=== PATIENT | male | born 1950 | race Caucasian/White ===

== ENCOUNTER 2016-08-23 15:00 | Emergency (ER) | payer MEDICARE ==
[~2016-08-23] VITALS: Ht 185.4 cm; Wt 90.0 kg
[~2016-08-23 15:00] MED LIST: ALBU6.7H INH; ASPI325T PO; LITH600C PO; METO25TA6 PO; PRED10 PO; RABE1TAB PO; RAPA8CAP PO
[2016-08-23 15:03] VITALS: BP 148/78; PULSE 84; RESP 14; TEMP 98.1; O2SAT 100
[2016-08-23] MEDS ORDERED: SODIUM CHLORIDE 0.9% FLUSH 5 ML FLUSH IVF PRN (19:30)
--- NOTE | 2016-08-23 19:30 | PD ---
HPI Chief Complaint: Abdominal Pain Time Seen by Provider: 19:29 Travel History International Travel<30 days: No Contact w/Intl Traveler<30days: No Traveled to known affect area: No History of Present Illness HPI 66-year-old male with a history of hemachromatosis, hypertension, BPH presents to the emergency department for evaluation of right groin pain for 2 days. Patient states that he had intermittent sharp pain in his right inguinal region for the past 2 days. Patient states that he has had bilateral inguinal hernia repairs about one year ago. States that he has had intermittent pain on this right side since the surgery one year ago but that the pain the last 2 days is much worse than it has been. He also complains of some mild nausea. Denies fever, chills, vomiting, diarrhea, constipation. 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 The patient states that he was recently diagnosed with angiodysplasia of the gastrointestinal tract by Dr. Larson and has a small GI bleed at this time, he is being followed as an outpatient and has a scheduled colonoscopy. He does complain of weakness for the past several months, attributes this to his anemia. PFSH Past Medical History Anemia: Yes Asthma: Yes Blood Disorders: Yes (HEMOCHROMOTOSIS) Bipolar Disorder: Yes Anxiety: Yes Depression: Yes Heart Rhythm Problems: No Cancer: No Cardiac Catheterization: Yes Cardiovascular Problems: Yes (CHEST PAIN) High Cholesterol: No Chest Pain: Yes Congestive Heart Failure: No Cerebrovascular Accident: Yes (TIA 2007 X3 NO RESIDUAL ) Diabetes: No Diminished Hearing: No Endocrine: No Gastrointestinal Disorders: Yes (REFLUX, HEME STOOLS, COLON NEOPLASM) GERD: Yes Genitourinary: Yes (PROSTATITIS, URINARY FREQUENCY) Hepatitis: No Hiatal Hernia: Yes Hypertension: Yes Immune Disorder: No Inguinal Hernia: Yes Implanted Vascular Access Dvce: Yes (pacemaker) Medical other: Yes (HEMOCHROMATOSIS,ANEMIA) Musculoskeletal: Yes (SHOULDER TENDONITIS) Neurologic: Yes (TIA X 3) Psychiatric: Yes (BIPOLAR) Reproductive: No Respiratory: Yes (ASTHMA) Immunizations Current: Yes Thyroid Disease: No Tetanus Vaccination: < 5 Years ?: Not Past Surgical History Abdominal Surgery: Yes (CHOLY, HERNIA REPAIR) AICD: No Cardiac Surgery: Yes (Cardiac Cath 2008, PACEMAKER) Cholecystectomy: Yes (2011) Coronary Artery Bypass Graft: No Ear Surgery: No Endocrine Surgery: No Eye Surgery: Yes (BILAT CATARACT 2011) Genitourinary Surgery: No Gynecologic Surgery: No Joint Replacement: Yes (BILATERAL HIP X 2 with hardware) Oral Surgery: Yes (TONSILLECTOMY) Pacemaker: Yes (MEDTRONIC) Thoracic Surgery: No Tonsillectomy: Yes (CHILDHOOD) Other Surgery: Yes (PACEMAKER 2014) Social History Alcohol Use: No Tobacco Use: No Substance Use: No Allergies-Medications (Allergen,Severity, Reaction): Coded Allergies: Demerol (Verified Allergy, Severe, swelling, 05/21/16) Morphine (Verified Allergy, Severe, Anaphylaxis, 05/21/16) Quinolones (Verified Allergy, Severe, tendenitis, 05/21/16) Levaquin (Verified Allergy, Intermediate, 05/21/16) STATES TENDONITIS Cipro (Verified Adverse Reaction, Severe, RUPTURED ACHILLES TENDON, ) Reported Meds & Prescriptions Reported Meds & Active Scripts Active Reported Rapaflo (Silodosin) 8 Mg Cap 8 Mg PO DAILY Rabeprazole (Rabeprazole Sodium) 20 Mg Tab 20 Mg PO DAILY Prednisone 10 Mg Tab 10 Mg PO DAILY Metoprolol Succinate ER 24 HR (Metoprolol Succinate) 25 Mg Tab 25 Mg PO TID [place] Carbonate 600 Mg Cap 600 Mg PO DAILY Aspirin 325 Mg Tab 325 Mg PO DAILY Proventil Hfa 6.7 GM Inh (Albuterol Sulfate) 90 Mcg/Act Aer 2 Puff INH Q6H PRN Review of Systems Except as stated in HPI: all other systems reviewed are Neg Physical Exam Narrative GENERAL: Well-nourished and well-developed pleasant male patient in no acute distress who is nontoxic appearing. SKIN: Warm and dry. HEAD: Normocephalic and atraumatic. EYES: No injection, drainage, or hyphema noted. PERRLA. EOMI. ENT: No nasal drainage noted. Oropharynx is clear. NECK: Supple and the trachea is midline. CARDIOVASCULAR: Regular rate and rhythm. RESPIRATORY: Breath sounds are equal bilaterally with no accessory muscle use, wheezing, rhonchi, or crackles. GASTROINTESTINAL: Tenderness to palpation of right groin and inguinal region with no palpable hernia or masses. Abdomen is soft and nondistended. MUSCULOSKELETAL: No obvious deformities, swelling, cyanosis, or ecchymosis is present throughout the upper and lower extremities. Patient has full range of motion without any signs of neurovascular compromise. NEUROLOGICAL: Awake, alert, and oriented. Normal speech and gait. Cranial nerves are grossly intact. Data Data Last Documented VS Vital Signs Date Time Temp Pulse Resp B/P Pulse Ox O2 Delivery O2 Flow Rate FiO2 08/23/16 19:15 16 08/23/16 15:03 98.1 84 148/78 100 Room Air Orders Complete Blood Count With Diff (08/23/16 19:28) Comprehensive Metabolic Panel (08/23/16 19:28) Lipase (08/23/16 19:28) Prothrombin Time / Inr (Pt) (08/23/16:28) Act Partial Throm Time (Ptt) (08/23/16:28) Urinalysis - C+S If Indicated (08/23/16 19:28) Ct Abd/Pel W Iv Contrast(Rout) (08/23/16 19:28) Iv Access Insert/Monitor (08/23/16 19:28) Ecg Monitoring (08/23/16:28) Oximetry (08/23/16 19:28) Sodium Chloride 0.9% Flush (Ns Flush) (08/23/16 19:30) Iohexol 350 Inj (Omnipaque 350 Inj) (08/23/16 19:55) Labs Laboratory Tests Test 08/23/16 08/23/16 19:35 20:35 White Blood Count 8.8 TH/MM3 Red Blood Count 4.77 MIL/MM3 Hemoglobin 10.8 GM/DL Hematocrit 33.9 % Mean Corpuscular Volume 71.2 FL Mean Corpuscular Hemoglobin 22.6 PG Mean Corpuscular Hemoglobin 31.8 % Concent Red Cell Distribution Width 19.3 % Platelet Count 163 TH/MM3 Mean Platelet Volume 7.8 FL Neutrophils (%) (Auto) 84.3 % Lymphocytes (%) (Auto) 10.8 % Monocytes (%) (Auto) 4.1 % Eosinophils (%) (Auto) 0.3 % Basophils (%) (Auto) 0.5 % Neutrophils # (Auto) 7.4 TH/MM3 Lymphocytes # (Auto) 1.0 TH/MM3 Monocytes # (Auto) 0.4 TH/MM3 Eosinophils # (Auto) 0.0 TH/MM3 Basophils # (Auto) 0.0 TH/MM3 CBC Comment AUTO DIFF Differential Comment AUTO DIFF CONFIRMED Platelet Estimate NORMAL Platelet Morphology Comment NORMAL Tear Drop Cells 1+ Ovalocytes 2+ Keratocytes OCC Prothrombin Time 10.5 SEC Prothromb Time International 1.0 RATIO Ratio Activated Partial 24.0 SEC Thromboplast Time Sodium Level 142 MEQ/L Potassium Level 4.2 MEQ/L Chloride Level 108 MEQ/L Carbon Dioxide Level 27.8 MEQ/L Anion Gap 6 MEQ/L Blood Urea Nitrogen 14 MG/DL Creatinine 0.96 MG/DL Estimat Glomerular Filtration 78 ML/MIN Rate Random Glucose 101 MG/DL Calcium Level 9.1 MG/DL Total Bilirubin 0.4 MG/DL Aspartate Amino Transf 12 U/L (AST/SGOT) Alanine Aminotransferase 18 U/L (ALT/SGPT) Alkaline Phosphatase 77 U/L Total Protein 7.2 GM/DL Albumin 4.6 GM/DL Lipase 132 U/L Urine Color LIGHT-YELLOW Urine Turbidity HAZY Urine pH 7.5 Urine Specific [place] 1.008 Urine Protein NEG mg/dL Urine Glucose (UA) NEG mg/dL Urine Ketones NEG mg/dL Urine Occult Blood NEG Urine Nitrite NEG Urine Bilirubin NEG Urine Urobilinogen LESS THAN 2.0 MG/DL Urine Leukocyte Esterase NEG Urine RBC LESS THAN 1 /hpf Urine WBC 1 /hpf Microscopic Urinalysis Comment CULT NOT INDICATED MDM Medical Decision Making Medical Screen Exam Complete: Yes Emergency Medical Condition: Yes Differential Diagnosis Hernia versus muscle strain versus colitis versus cystitis Narrative Course 66-year-old male presents to the emergency department for evaluation of right groin pain for 2 days. Patient is afebrile, vital signs are stable. He has tenderness over the right inguinal region but no palpable mass or hernia. IV access is obtained, labs were drawn and sent. CT of the abdomen and pelvis has been ordered and is pending. CBC shows mild anemia with hemoglobin of 10.8, hematocrit 33.3. Patient reports that last week he had his blood work done and his hemoglobin was 10. CMP is unremarkable. Coags are unremarkable. CT of the abdomen and pelvis with IV contrast is negative for any acute abnormalities. Urinalysis is unremarkable. Patient has remained stable without complaint while here in the emergency department. Labs are all reassuring. Imaging is unremarkable. Discussed all findings with the patient. He reports that he would like to follow up with a general surgeon for second opinion as this is been bothering him for the past year. We'll give him the name of the general surgeon leaf conditioner helper. He is advised to follow-up with his PCP. Patient verbalizes understanding and agreement with treatment plan. I discussed the case with my attending physician Dr. Ortiz who is aware of the patients history, physical examination findings, and treatment plan. Diagnosis Primary Impression: Right groin pain Referrals: Alexx Santo MD Patient Instructions: General Instructions, Groin Pain (ED) Additional Instructions: Take [id number] Tylenol as directed on the box as needed for pain. Follow-up with your PCP. I have included the name of a general surgeon in the area if you would like to follow-up on your prior hernia repair. Return to the ED for any acute worsening of symptoms. Med/Other Pt SpecificInfo: No Change to Meds Disposition: 01 DISCHARGE HOME Condition: Stable Maura Alvarenga Aug 23, 2016 19:30
[2016-08-23] MEDS ORDERED: IOHEXOL 350 MG/ML 10 ML VIAL (for RAD DIAG) IV ONE (19:55)
[2016-08-23 19:57] LABS: AUTOMATED NEUTROPHIL # 7.4 TH/MM3 (1.8-7.7); BASOPHIL % 0.5 % (0.0-2.0); EOSINOPHIL % 0.3 % (0.0-4.0); HEMATOCRIT 33.9 % (39.0-51.0); LYMPH % 10.8 % (9.0-44.0); MEAN CELL VOLUME 71.2 FL (80.0-100.0); MEAN CORPUSCULAR HEMOGLOBIN 22.6 PG (27.0-34.0); MEAN CORPUSCULAR HGB CONC 31.8 % (32.0-36.0); MONO % 4.1 % (0.0-8.0); NEUT % 84.3 % (16.0-70.0); PLATELET COUNT 163 TH/MM3 (150-450); RED BLOOD COUNT 4.77 MIL/MM3 (4.50-5.90); RED CELL DISTRIBUTION WIDTH 19.3 % (11.6-17.2); WHITE BLOOD COUNT 8.8 TH/MM3 (4.0-11.0)
[2016-08-23 19:58] LABS: HEMO FLAGS AUTO DIFF
[2016-08-23 20:09] LABS: PROTHROMBIN TIME - PATIENT 10.5 SEC (9.8-11.6)
--- NOTE | 2016-08-23 20:16 | RADRPT ---
EXAM DATE/TIME: 08/23/2016 19:59 [facility] COMPARISON: CT ABDOMEN & PELVIS W/O CONTRAST, April 20, 2013, 1:47. INDICATIONS : Right inguinal pain today. IV CONTRAST: 92 cc Omnipaque 350 (iohexol) IV ORAL CONTRAST: No oral contrast ingested. RADIATION DOSE: 13.13 CTDIvol (mGy) MEDICAL HISTORY : Stroke. Hypertension. Cardiovascular disease SURGICAL HISTORY : Inguinal hernia repair. Cholecystectomy. ENCOUNTER: Initial ACUITY: 1 day PAIN SCALE: 6/10 LOCATION: Right lower quadrant TECHNIQUE: Volumetric scanning of the abdomen and pelvis was performed. Using automated exposure control and ad justment of the mA and/or kV according to patient size, radiation dose was kept as low as reasonably achievable to obtain optimal diagnostic quality images. FINDINGS: LOWER LUNGS: The visualized lower lungs are clear. LIVER: Homogeneous density without lesion. There is no dilation of the biliary tree. No gallbladder, surgi michael removed SPLEEN: Normal size without lesion. PANCREAS: Within normal limits. KIDNEYS: Normal in size and shape. There is no mass, stone or hydronephrosis. ADRENAL GLANDS: Within normal limits. VASCULAR: There is no aortic aneurysm. BOWEL/MESENTERY: The stomach, small bowel, and colon demonstrate no acute abnormality. There is no free intraperitone al air or fluid. The appendix is unremarkable. No inflammatory changes are demonstrated. ABDOMINAL WALL: Within normal limits. RETROPERITONEUM: There is no lymphadenopathy. BLADDER: Limited visualization due to streak artifact. REPRODUCTIVE: Within normal limits. INGUINAL: There is no lymphadenopathy or hernia. MUSCULOSKELETAL: Within normal limits for patient age. Bilateral hip prosthetic devices. Primary degenerative changes throughout the lumbar spine. No significant change compared to 2012. CONCLUSION: 1. Unremarkable CT scan of the abdomen and pelvis for patient's age. Mateo Hickey MD on August 23, 2016 at 20:11 Board Certified Radiologist. This report was verified electronically.
[2016-08-23 20:20] LABS: ANION GAP 6 MEQ/L (5-15); AST (GOT) 12 U/L (15-37); BICARBONATE 27.8 MEQ/L (21.0-32.0); BLOOD UREA NITROGEN 14 MG/DL (7-18); CHLORIDE 108 MEQ/L (98-107); GLOMERULAR FILTRATION RATE 78 ML/MIN (>89); POTASSIUM 4.2 MEQ/L (3.5-5.1); SODIUM (NA) 142 MEQ/L (136-145)
[2016-08-23 20:23] LABS: ALKALINE PHOSPHATASE 77 U/L (45-117); ALT (GPT) 18 U/L (12-78); TOTAL BILIRUBIN ADULT 0.4 MG/DL (0.2-1.0)
[2016-08-23 20:27] LABS: KERATOCYTES OCC (NORMAL); OVALOCYTES 2+ (NORMAL); TEARDROP RBCS 1+ (NORMAL)
[2016-08-23 20:28] LABS: PLATELET ESTIMATE SMEAR NORMAL (NORMAL); PLATELET MORPHOLOGY NORMAL (NORMAL); SCAN/DIFF AUTO DIFF CONFIRMED
--- NOTE | 2016-08-23 20:38 | PD ---
Physical Exam Narrative General: The patient is a well-developed well-nourished male in no acute distress. Head and Neck exam: Head is normocephalic atraumatic. Neck: No nuchal rigidity. Cardiovascular: Regular rate and rhythm without murmurs, gallops, or rubs. Lungs: Clear to auscultation bilaterally. No wheezes, rhonchi, or rales. Abdomen: Soft, without tenderness to palpation in all 4 quadrants of the abdomen. No guarding, rebound, or rigidity. Normal bowel sounds are audible. No tenderness on palpation of McBurney's point. The patient shows an area of discomfort in the right groin. The patient has no erythema or ecchymosis. No palpable hernia on examination. Back: No spinous process tenderness to palpation. No costovertebral angle tenderness to palpation. Neurologic Exam: Grossly nonfocal. Skin Exam: No rash noted. Intact skin that is warm and dry. Data Data Last Documented VS Vital Signs Date Time Temp Pulse Resp B/P Pulse Ox O2 Delivery O2 Flow Rate FiO2 08/23/16 19:15 16 08/23/16 15:03 98.1 84 148/78 100 Room Air Orders Complete Blood Count With Diff (08/23/16 19:28) Comprehensive Metabolic Panel (08/23/16 19:28) Lipase (08/23/16 19:28) Prothrombin Time / Inr (Pt) (08/23/16 19:28) Act Partial Throm Time (Ptt) (08/23/16 19:28) Urinalysis - C+S If Indicated (08/23/16 19:28) Ct Abd/Pel W Iv Contrast(Rout) (08/23/16 19:28) Iv Access Insert/Monitor (08/23/16 19:28) Ecg Monitoring (08/23/16 19:28) Oximetry (08/23/16 19:28) Sodium Chloride 0.9% Flush (Ns Flush) (08/23/16 19:30) Iohexol 350 Inj (Omnipaque 350 Inj) (08/23/16 19:55) Labs Laboratory Tests Test 08/23/16 08/23/16 19:35 20:35 White Blood Count 8.8 TH/MM3 Red Blood Count 4.77 MIL/MM3 Hemoglobin 10.8 GM/DL Hematocrit 33.9 % Mean Corpuscular Volume 71.2 FL Mean Corpuscular Hemoglobin 22.6 PG Mean Corpuscular Hemoglobin 31.8 % Concent Red Cell Distribution Width 19.3 % Platelet Count 163 TH/MM3 Mean Platelet Volume 7.8 FL Neutrophils (%) (Auto) 84.3 % Lymphocytes (%) (Auto) 10.8 % Monocytes (%) (Auto) 4.1 % Eosinophils (%) (Auto) 0.3 % Basophils (%) (Auto) 0.5 % Neutrophils # (Auto) 7.4 TH/MM3 Lymphocytes # (Auto) 1.0 TH/MM3 Monocytes # (Auto) 0.4 TH/MM3 Eosinophils # (Auto) 0.0 TH/MM3 Basophils # (Auto) 0.0 TH/MM3 CBC Comment AUTO DIFF Differential Comment AUTO DIFF CONFIRMED Platelet Estimate NORMAL Platelet Morphology Comment NORMAL Tear Drop Cells 1+ Ovalocytes 2+ Keratocytes OCC Prothrombin Time 10.5 SEC Prothromb Time International 1.0 RATIO Ratio Activated Partial 24.0 SEC Thromboplast Time Sodium Level 142 MEQ/L Potassium Level 4.2 MEQ/L Chloride Level 108 MEQ/L Carbon Dioxide Level 27.8 MEQ/L Anion Gap 6 MEQ/L Blood Urea Nitrogen 14 MG/DL Creatinine 0.96 MG/DL Estimat Glomerular Filtration 78 ML/MIN Rate Random Glucose 101 MG/DL Calcium Level 9.1 MG/DL Total Bilirubin 0.4 MG/DL Aspartate Amino Transf 12 U/L (AST/SGOT) Alanine Aminotransferase 18 U/L (ALT/SGPT) Alkaline Phosphatase 77 U/L Total Protein 7.2 GM/DL Albumin 4.6 GM/DL Lipase 132 U/L Urine Color LIGHT-YELLOW Urine Turbidity HAZY Urine pH 7.5 Urine Specific [place] 1.008 Urine Protein NEG mg/dL Urine Glucose (UA) NEG mg/dL Urine Ketones NEG mg/dL Urine Occult Blood NEG Urine Nitrite NEG Urine Bilirubin NEG Urine Urobilinogen LESS THAN 2.0 MG/DL Urine Leukocyte Esterase NEG Urine RBC LESS THAN 1 /hpf Urine WBC 1 /hpf Microscopic Urinalysis Comment CULT NOT INDICATED [facility] Medical Record Reviewed: Yes Supervised Visit with ROXANE: Yes Interpretation(s) Last Impressions Abdomen/Pelvis CT 08/23/[id number] Signed Impressions: Service Date/Time: Tuesday, August 23, 2016 19:59 - CONCLUSION: 1. Unremarkable CT scan of the abdomen and pelvis for patient's age. Mateo Hickey MD Narrative Course During the course of the patients emergency department visit, the patients history, examination, and differential diagnosis were reviewed with the patient. The patient had IV access obtained and blood work sent for analysis. I , Dr. Ortiz, have reviewed the advance practice practitioner's documentation and am in agreement, met with the patient face to face, made the diagnosis, and the medical decision making was done by me. The patient was initially evaluated by Maura. Please see her complete history and physical. *My assessment and Findings: The patient is a 66-year-old male who presents to [facility] emergency Department with a history of proximal a year and a half ago undergoing bilateral inguinal hernia repairs. He reports that since then he's had pain intermittently in the right groin. He reports that his surgeon went back into explore the area and found no acute abnormality. He reports that since then he has had intermittent soft stools. He reports that over the last 2 days she's also had increasing pain in the right groin. He denies any specific injury or rash in the area. The patient was noted to have right groin tenderness on palpation however no palpable hernia. Laboratory studies and imaging studies were ordered. . The patients laboratory studies were reviewed and remarkable for a CBC that shows a white count 8.8, hemoglobin 10.8, platelets 163 with 84.3 neutrophils, CMP is remarkable for chloride of 108, GFR 78, AST 12, lipase 132, PT PTT unremarkable, urinalysis unremarkable. Radiology studies were reviewed and remarkable for a CT scan of the abdomen and pelvis that shows no acute abnormality. The patient was instructed regarding the importance of following up with his surgeon for reexamination of the area of discomfort. He reports that he would like a second opinion with another surgeon. He was given the name of the surgeon on-call for follow-up. The patient is resting comfortably and feels better, is alert and in no distress. The patients results and examination findings were discussed with the patient. The repeat examination is unremarkable and benign. The history, exam, diagnostic testing, and current condition do not suggest any significant pathology to warrant further testing, continued ED treatment, admission, or surgical evaluation at this point. The vital signs have been stable. The patient does not have uncontrollable pain, intractable vomiting, or other significant symptoms. The patient's condition is stable and appropriate for discharge. The patient will pursue further outpatient evaluation with a primary care physician or other designated or consulting physician as indicated in the discharge instructions. The patient expressed understanding and was agreeable with this plan. Diagnosis Primary Impression: Right groin pain Jeimy Ortiz MD Aug 23, 2016 20:38
[2016-08-23 21:00] LABS: BLOOD, URINE NEG (NEG); COMMENT (UR) CULT NOT INDICATED; CULTURE IF INDICATED CULT NOT INDICATED; GLUCOSE,URINE NEG (NEG); KETONE, URINE NEG (NEG); NITRITE,URINE NEG (NEG); PH, URINE 7.5 (5.0-8.5); URINE COLOR LIGHT-YELLOW (YELLW/STRAW)
== END 2016-08-23 21:58 | disposition home or self-care (01) ==
LOC: NEPC 15:00
DX: R10.31 Right lower quadrant pain (principal); I10 Essential (primary) hypertension; Z95.0 Presence of cardiac pacemaker; D64.9 Anemia, unspecified
CPT/HCPCS: 74177; 80053; 81001; 83690; 85025; 85610; 85730; 99284; Q9967